=== PATIENT | male | born 1995 | race Asian ===

== ENCOUNTER 2024-08-24 21:20 | Emergency (ER) | payer SELFPAY ==
[~2024-08-24] VITALS: Ht 170.2 cm; Wt 127.3 kg
[2024-08-24 21:31] VITALS: TEMP 98.2
[2024-08-24] MEDS: IBUPROFEN 600 MG TABLET PO ONE (23:17)
[2024-08-24] MEDS ORDERED: IBUP-1492 PO (23:18)
[2024-08-24 23:22] VITALS: BP 141/81; PULSE 88; RESP 16; O2SAT 97
== END 2024-08-24 23:28 | disposition home or self-care (01) ==
LOC: EMS 21:20
DX: S86.091A Other specified injury of right Achilles tendon, initial encounter (principal); M76.61 Achilles tendinitis, right leg; Z91.018 Allergy to other foods; X58.XXXA Exposure to other specified factors, initial encounter; Y93.67 Activity, basketball; Y92.89 Other specified places as the place of occurrence of the external cause; Y99.8 Other external cause status
CPT/HCPCS: 99283

== ENCOUNTER 2025-01-16 19:48 | Emergency (ER) | payer OTHER ==
[~2025-01-16] VITALS: Ht 170.2 cm; Wt 120.5 kg
[~2025-01-16 19:48] MED LIST: IBUP-1492 PO
[2025-01-16 19:49] VITALS: TEMP 98.4
[2025-01-16] MEDS: ACETAMINOPHEN 500 MG TABLET PO ONE (20:03)
[2025-01-16 20:54] VITALS: BP 148/96; PULSE 106; RESP 20; O2SAT 100
== END 2025-01-16 22:08 | disposition home or self-care (01) ==
LOC: EMS 19:48
DX: S09.90XA Unspecified injury of head, initial encounter (principal); Z91.018 Allergy to other foods; Z79.899 Other long term (current) drug therapy; Y08.89XA Assault by other specified means, initial encounter; Y93.89 Activity, other specified; Y92.89 Other specified places as the place of occurrence of the external cause; Y99.8 Other external cause status
CPT/HCPCS: 70450; 70486; 72125; 99284